=== PATIENT | male | born 1970 | race Caucasian/White ===

== ENCOUNTER → 2018-04-07 | Outpatient (REF) | payer OTHER ==
[2018-04-07 17:45] LABS: AMYLASE 61 U/L (25-115); LIPASE 138 U/L (73-393)
== END ==
LOC: M LAB REF 16:46
PROVIDERS: ATTEND Nurse Practitioner Adult Health
DX: R10.9 Unspecified abdominal pain (principal)

== ENCOUNTER → 2018-04-07 | Outpatient (CLI) | payer OTHER ==
[~2018-04-07] MED LIST: GASTROGRAFIN SOLUTION 30ML (Q9963) As Ordered ONE; ISOVUE-370 76% 100ML VIAL (Q9967) As Ordered ONE
--- NOTE | 2018-04-07 16:05 | REP ---
CT study abdomen and pelvis without and with IV contrast: With oral contrast. History: Severe abdominal pain. CT contrast dose: 100 mL of intravenous Isovue 370. CT findings: Digital preliminary company manager radiograph images are unremarkable. The lung bases are clear on axial CT images. The liver and the spleen are normal in size and homogeneous in texture on pre and postcontrast enhanced imaging. No pancreatic abnormality is observed. The gallbladder shows no evidence of stone or other abnormality. No adrenal lesion is seen. The kidneys enhance symmetrically and are morphologically intact on pre and postcontrast imaging. There is no evidence of hydronephrosis or intrarenal calculus. No retroperitoneal mass or adenopathy is observed. A normal appendix is seen lateral to the cecal tip in the right lower quadrant. There are several dystrophic calcifications in the prostate. Seminal vesicles and urinary bladder are intact. No abdominal wall defect is seen. There is a segment of mural thickening in the sigmoid colon with some associated diverticulosis. There is pericolonic fat streaking. There is a 12 mm fluid collection in the wall of the sigmoid colon. The findings are compatible with acute diverticulitis. There is no evidence of free air or drainable abscess. No bony abnormality is seen. Exam is otherwise unremarkable. Impression: Acute diverticulitis pattern sigmoid colon with 12 mm intramural fluid collection. No evidence of free air or drainable abscess. Electronically Signed by Conor Montaño MD 04/07/2018 04:27 P
== END ==
LOC: M RAD 13:56
PROVIDERS: ATTEND Nurse Practitioner Adult Health
DX: R10.9 Unspecified abdominal pain (principal)

== ENCOUNTER 2018-06-08 08:19 | Day surgery (SDC) | payer OTHER ==
[~2018-06-08] VITALS: Ht 193 cm; Wt 96.2 kg
[~2018-06-08 08:19] MED LIST changes: +FISH120016 PO; -GASTROGRAFIN SOLUTION 30ML (Q9963) As Ordered ONE; -ISOVUE-370 76% 100ML VIAL (Q9967) As Ordered ONE; +NS 1,000 ML IV ONE; +VITA500C24 PO; +VITMTA PO
[2018-06-08] MEDS ORDERED: LIDOCAINE 2% INJ 100 MG/5 ML SDV (FOR ANES.) As Ordered ONE (09:49)
[2018-06-08] MEDS ORDERED: PROPOFOL 200 MG/20 ML VIAL As Ordered ONE (09:49)
--- NOTE | 2018-06-08 10:48 | ROOR ---
Patient Name: Mike Deluna Procedure Date: 06/08/2018 10:12 AM Date of : 1970 Age: 47 Room: [facility] Gender: Male Note Status: Finalized Procedure: Colonoscopy Indications: Follow-up of diverticulitis Providers: Myles Saucedo MD Referring MD: Winnie Delgado NP Requesting Provider: Medicines: Monitored Anesthesia Care Complications: No immediate complications. Procedure: Pre-Anesthesia Assessment: - Prior to the procedure, a History and Physical was performed, and patient medications and allergies were reviewed. The patient is competent. The risks and benefits of the procedure and the sedation options and risks were discussed with the patient. All questions were answered and informed consent was obtained. Patient identification and proposed procedure were verified by the physician, the nurse and the anesthesiologist in the endoscopy suite. Mental Status Examination: alert and oriented. Airway Examination: normal oropharyngeal airway and neck mobility. Respiratory Examination: clear to auscultation. CV Examination: normal. Prophylactic Antibiotics: The patient does not require prophylactic antibiotics. Prior Anticoagulants: The patient has taken no previous anticoagulant or antiplatelet agents. ASA Grade Assessment: I - A normal, healthy patient. After reviewing the risks and benefits, the patient was deemed in satisfactory condition to undergo the procedure. The anesthesia plan was to use monitored anesthesia care (MAC). Immediately prior to administration of medications, the patient was re-assessed for adequacy to receive sedatives. The heart rate, respiratory rate, oxygen saturations, blood pressure, adequacy of pulmonary ventilation, and response to care were monitored throughout the procedure. The physical status of the patient was re-assessed after the procedure. The Colonoscope was introduced through the anus and advanced to the cecum, identified by appendiceal orifice and ileocecal valve. The colonoscopy was performed without difficulty. The patient tolerated the procedure well. The quality of the bowel preparation was good. Findings: The perianal and digital rectal examinations were normal. A 2 to 3 mm polyp was found in the rectum. The polyp was sessile. The polyp was removed with a hot snare. The polyp was removed with a cold snare. Resection was complete, and retrieval was complete. Estimated blood loss was minimal. A few small-mouthed diverticula were found in the sigmoid colon. The retroflexed view of the distal rectum and anal verge was normal and showed no anal or rectal abnormalities. Impression: - One 2 to 3 mm polyp in the rectum, removed with a hot snare and removed with a cold snare. Resected and retrieved. - Diverticulosis in the sigmoid colon. - The distal rectum and anal verge are normal on retroflexion view. Recommendation: - Discharge patient to home (ambulatory). - High fiber diet. - Continue present medications. - Telephone my office for pathology results in 1 week. - Repeat colonoscopy in 10 years for screening purposes. Myles Saucedo MD Myles Saucedo MD 06/08/2018 10:48:20 AM This report has been signed electronically. Number of Addenda: 0 Note Initiated On: 06/08/2018 10:12 AM Estimated Blood Loss: Estimated blood loss was minimal.
[2018-06-08 11:00] VITALS: BP 124/71
== END 2018-06-08 11:12 | disposition home or self-care (01) ==
LOC: M OPP 08:19
PROVIDERS: ATTEND Surgery
DX: K57.30 Diverticulosis of large intestine without perforation or abscess without bleeding (principal); D12.5 Benign neoplasm of sigmoid colon

== ENCOUNTER 2020-06-20 16:44 | Inpatient (IN) | payer OTHER ==
[~2020-06-20] VITALS: Ht 193 cm; Wt 101.4 kg
[~2020-06-20 16:44] MED LIST changes: -CIPR500T39 PO; -GASTROGRAFIN SOLUTION 30ML (Q9963) As Ordered ONE; -ISOVUE-370 76% 100ML VIAL As Ordered ONE; -METR-265 PO
[2020-06-20] MEDS ORDERED: CIPROFLOXACIN 400 MG in IV 1 EA IV ONE (17:40)
[2020-06-20] MEDS ORDERED: metroNIDAZOLE 500 MG in IV 1 EA IV ONE (17:40)
[2020-06-20] MEDS ORDERED: NS 1,000 ML IV ONE (17:40)
[2020-06-20 17:55] LABS: BLOOD UREA NITROGEN 13 MG/DL (7-18); CALCIUM LEVEL 8.9 MG/DL (8.5-10.1); CARBON DIOXIDE LEVEL 30 MEQ/L (21-32); CHLORIDE LEVEL 105 MEQ/L (98-107); CREATININE FOR GFR 1.03 MG/DL (0.70-1.30); GLOMERULAR FILTRATION RATE > 60.0 (>56); GLUCOSE, FASTING 100 MG/DL (70-100); POTASSIUM SERUM 4.3 MEQ/L (3.5-5.1); SODIUM LEVEL 140 MEQ/L (136-145)
[2020-06-20 18:04] LABS: BASO % 0.3 % (0.0-1.0); EOS # 0.1 10^3/uL (0.0-0.5); EOS % 1.6 % (0.0-3.0); HEMATOCRIT 46.5 % (42.0-52.0); HEMOGLOBIN 14.8 g/dl (13.5-17.5); LYMPH # 1.3 10^3/uL (1.5-5.0); LYMPH % 14.3 % (24.0-44.0); MEAN CORPUSCULAR HEMOGLOBIN 30.6 pg (27.0-33.0); MEAN CORPUSCULAR HGB CONC 31.8 g/dl (32.0-36.5); MEAN CORPUSCULAR VOLUME 96.1 fl (80.0-96.0); MONO # 0.8 10^3/uL (0.0-0.8); MONO % 9.5 % (2.0-8.0); NEUTROPHILS # 6.5 10^3/uL (1.5-8.5); NEUTROPHILS % 74.1 % (36.0-66.0); PLATELET COUNT, AUTOMATED 216 10^3/uL (150-450); RED BLOOD COUNT 4.84 10^6/uL (4.30-6.10); WHITE BLOOD COUNT 8.8 10^3/uL (4.0-10.0)
[2020-06-20] MEDS ORDERED: CIPR500T39 PO (18:52)
[2020-06-20] MEDS ORDERED: METR-265 PO (18:52)
[2020-06-20] MEDS ORDERED: MORPHINE 2 MG/ML 1ML VIAL (J2270) IV PRN (20:10)
--- NOTE | 2020-06-20 20:13 | HPEPDOC ---
[facility] Medical History & Physical Date of Admission Jun 20, 2020 Date of Service: Jun 20, 2020 Primary Care Physician: Winnie Delgado Attending Physician: LUCIA GUERRA MD History and Physical TIME OF SERVICE: 912PM CHIEF COMPLAINT: abdominal pain HISTORY OF PRESENT ILLNESS: This 49 yr old M presented w c/o sharp/shooting lower abdominal pain for 2 or 3 days that was associated w non-bloody loose stools. His PCP started him on abx yesterday and ordered a CT of the abdomen th at showed possible bowel perforation an instructed the patient to come to the hospital. REVIEW OF SYSTEMS: 12-point review of systems negative except as listed in HPI PAST MEDICAL/ SURGICAL HISTORY: Diverticulitis (1st episode 2 yrs ago, last acute episode 1 month ago) / resection of tubular adenoma (2019) SOCIAL HISTORY: doesnt smoke FAMILY HISTORY: CAD w stent placement ALLERGIES: Please see below. HOME MEDICATIONS: Please see below. PHYSICAL EXAMINATION: Vital Signs Date Time Temp Pulse Resp B/P (MAP) Pulse Ox O2 Delivery O2 Flow Rate FiO2 06/20/20 16:45 99.1 81 22 140/73 (95) 96 Room Air GENERAL APPEARANCE: well nourished and developed/ NAD/ reclined in hospital bed HEENT: EOMI / no scleral icterus CARDIOVASCULAR: RRR/NMRG/ no LE edema LUNGS: CTAB on RA ABDOMEN: flat / soft / guarding w palpation especially at the right lower abdomen MUSCULOSKELETAL: NCAT / ROMIx 4 INTEGUMENT: not flushed or diaphoretic NEUROLOGICAL:CN 2-12 grossly intact /speech not dysarthric PSYCHIATRIC: A&OX 3 / able to understand and follow all commands LABORATORY DATA: 06/20/20 17:40 06/20/20 17:40: Immature Granulocyte % (Auto) 0.2, Neutrophils (%) (Auto) 74.1H, Lymphocytes (%) (Auto) 14.3L, Monocytes (%) (Auto) 9.5H, Eosinophils (%) (Auto) 1.6, Basophils (%) (Auto) 0.3, Neutrophils # (Auto) 6.5, Lymphocytes # (Auto) 1.3L, Monocytes # (Auto) 0.8, Eosinophils # (Auto) 0.1, Basophils # (Auto) 0.0, Nucleated Red Blood Cells % (auto) 0.0, Anion Gap 5L, Glomerular Filtration Rate > 60.0, Calcium Level 8.9 IMAGING: CT abd/pelvis IMPRESSION: 1. Some residual pericolonic inflammation is seen adjacent to the sigmoid colon, improved from the most recent prior study of May 08, 2020. 2. There is a new finding of free intraperitoneal air, small in amount, in the upper abdomen predominantly adjacent to the liver. This is felt indicate recent bowel perforation. MICROBIOLOGY: COVID neg ASSESSMENT: is a 49 yr old w diverticulosis admitted for acute diverticulitis w perforation. PLAN: 1 Acute diverticulitis w perforation. Plan: admit to medical floor/ NPO w LR / c/w antibiotics / morphine for pain / f/u w for possible surgery in the morning DVT px w SCDs Dispo: home after at least 2 midnights stay Home Medications Scheduled Ciprofloxacin HCl (Ciprofloxacin HCl) 500 Mg Tablet, 500 MG PO BID FOR 14 DAYS, STARTED 06/19 Metronidazole (Metronidazole) 500 Mg Tablet, 500 MG PO TID FOR 14 DAYS, STARTED 06/19 Allergies Coded Allergies: No Known Allergies (Unverified , 06/02/18) A-FIB/CHADSVASC A-FIB History Current/History of A-Fib/PAF?: No Current PO Anticoag Therapy: No LUCIA GUERRA MD Jun 20, 2020 20:13
[2020-06-20] MEDS: LR 1,000 ML IV SCH (21:59)
[2020-06-20 22:00] VITALS: BP 122/70
[2020-06-21] VITALS: BP 111/58
[2020-06-21 04:00] VITALS: BP 125/69
[2020-06-21] MEDS: LR 1,000 ML IV SCH ×3 (06:02→17:15)
[2020-06-21] MEDS: metroNIDAZOLE 500 MG in IV 1 EA IV SCH ×3 (06:07→21:28)
[2020-06-21 06:21] LABS: HEMATOCRIT 42.3 % (42.0-52.0); HEMOGLOBIN 13.6 g/dl (13.5-17.5); MEAN CORPUSCULAR HEMOGLOBIN 30.9 pg (27.0-33.0); MEAN CORPUSCULAR HGB CONC 32.2 g/dl (32.0-36.5); MEAN CORPUSCULAR VOLUME 96.1 fl (80.0-96.0); PLATELET COUNT, AUTOMATED 181 10^3/uL (150-450); WHITE BLOOD COUNT 5.5 10^3/uL (4.0-10.0)
[2020-06-21 06:46] LABS: BLOOD UREA NITROGEN 10 MG/DL (7-18); CALCIUM LEVEL 8.7 MG/DL (8.5-10.1); CARBON DIOXIDE LEVEL 31 MEQ/L (21-32); CHLORIDE LEVEL 108 MEQ/L (98-107); CREATININE FOR GFR 1.03 MG/DL (0.70-1.30); GLOMERULAR FILTRATION RATE > 60.0 (>56); GLUCOSE, FASTING 98 MG/DL (70-100); MAGNESIUM LEVEL 2.2 MG/DL (1.8-2.4); POTASSIUM SERUM 4.5 MEQ/L (3.5-5.1); SODIUM LEVEL 142 MEQ/L (136-145)
[2020-06-21] MEDS: CIPROFLOXACIN 400 MG in IV 1 EA IV SCH ×2 (07:21→18:23)
[2020-06-21 08:00] VITALS: BP 125/81
--- NOTE | 2020-06-21 11:14 | IPNPDOC ---
Text Note Date of Service The patient was seen on 06/21/20. NOTE Gen. surgery. Dr. Saucedo Patient is a 49 yr old with history of diverticulosis admitted 06/20 with acute diverticulitis with perforation. Patient reports no nausea or vomiting. States abdominal pain is improved today. Decreased bloating. No bowel movement since yesterday morning. Small flatus. Afebrile. VSS Gen awake and alert, sitting up in bed MMM Lungs Clear to auscultation S1-S2 regular rate rhythm. Abdomen. Flat, soft, nondistended, mild tenderness in the left lower quadrant. No guarding or rebound. No grimacing. Extremities no edema WBC 5.5, hemoglobin 13.6, platelets 181. Serum creatinine 1.03 with GFR greater than 60. Assessment/plan Acute diverticulitis with perforation. Patient is reviewed and examined as per Dr. Saucedo. Afebrile. No leukocytosis. Plan to continue with IV Cipro/Flagyl. Continue IV fluids Clear liquids ordered this morning. Will continue to monitor the patient's symptoms. If he improves with IV antibiotics over the weekend could consider arranging sigmoid colectomy as outpatient, otherwise could proceed this admission if the patient's symptoms do not improve. Continue to monitor. VS,Fishbone, I+O VS, Fishbone, I+O Laboratory Tests 06/20/20 17:40 06/21/20 06:10 Vital Signs Date Time Temp Pulse Resp B/P (MAP) Pulse Ox O2 Delivery O2 Flow Rate FiO2 06/21/20 08:00 98.4 66 18 125/81 (96) 97 Room Air I&O- Last 24 Hours up to 6 AM 06/21/20 06:00 Intake Total 1780 ml Output Total 0 ml Balance 1780 ml Dulce Cruz Jun 21, 2020 10:41
[2020-06-21 12:00] VITALS: BP 129/75
[2020-06-21] MEDS: HEPARIN SOD (PORCINE) 5000UNITS/ML 1ML VIAL/SYRINGE SQ SCH ×2 (14:00→21:29)
--- NOTE | 2020-06-21 14:52 | IPNPDOC ---
Date Seen The patient was seen on 06/21/20. Progress Note SUBJECTIVE: Improved abd pain, VS stable. WBC remains wnl, afebrile. Discussed with Dr. Saucedo, advancing diet today. Denies n/v/d, fevers, chills. OBJECTIVE: PHYSICAL EXAMINATION: Vital Signs: Please see below GENERAL APPEARANCE: well nourished and developed/ NAD. AAOx 3 HEENT: EOMI / no scleral icterus CARDIOVASCULAR: RRR/NMRG/ no LE edema LUNGS: CTAB on RA ABDOMEN: flat / soft / very mild tenderness/discomfort in suprapubic area 2/10 on deep palpation MUSCULOSKELETAL: NCAT / ROMIx 4 INTEGUMENT: not flushed or diaphoretic NEUROLOGICAL:CN 2-12 grossly intact /speech not dysarthric PSYCHIATRIC: A&OX 3 / able to understand and follow all commands LABORATORY DATA: Please see below IMAGING: CT abd/pelvis: 1. Some residual pericolonic inflammation is seen adjacent to the sigmoid colon, improved from the most recent prior study of May 08, 2020. 2. There is a new finding of free intraperitoneal air, small in amount, in the upper abdomen predominantly adjacent to the liver. This is felt indicate recent bowel perforation. MICROBIOLOGY: COVID neg ASSESSMENT: is a 49 yr old w hx of diverticulosis admitted for acute diverticulitis w/ perforation. PLAN: 1. Acute diverticulitis w/ perforation -WBC wnl, afebrile, improved abdominal pain -Advancing to CLD today -Daily labs -Per surgery, c/w IV abx, pain control. If does well over weekend and with adv ancement of diet, can likely d/c home to discuss elective sigmoid colon resection at later time. If does not continue to improve, this will be discussed this admission. 2. DVT px -Heparin SC DISPOSITION: Plan as above and then hope when medically improved. VS, I&O, 24H, Fishbone Vital Signs/I&O Vital Signs Date Time Temp Pulse Resp B/P (MAP) Pulse Ox O2 Delivery O2 Flow Rate FiO2 06/21/20 12:00 98.8 68 18 129/75 (93) 97 Room Air I&O- Last 24 Hours up to 6 AM 06/21/20 06:00 Intake Total 1780 ml Output Total 0 ml Balance 1780 ml Laboratory Data 24H LABS Laboratory Tests 2 06/20/20 17:15: Lactic Acid Level 0.7 06/20/20 17:40: Immature Granulocyte % (Auto) 0.2, Neutrophils (%) (Auto) 74.1H, Lymphocytes (%) (Auto) 14.3L, Monocytes (%) (Auto) 9.5H, Eosinophils (%) (Auto) 1.6, Basophils (%) (Auto) 0.3, Neutrophils # (Auto) 6.5, Lymphocytes # (Auto) 1.3L, Monocytes # (Auto) 0.8, Eosinophils # (Auto) 0.1, Basophils # (Auto) 0.0, Nucleated Red Blood Cells % (auto) 0.0, Anion Gap 5L, Glomerular Filtration Rate > 60.0, Calcium Level 8.9 06/20/20 18:22: Coronavirus (COVID-19)(PCR) NEGATIVE 06/21/20 01:02: Bedside Glucose (Misc Panel) 88 06/21/20 06:10: Nucleated Red Blood Cells % (auto) 0.0, Anion Gap 3L, Glomerular Filtration Rate > 60.0, Calcium Level 8.7, Magnesium Level 2.2 CBC/BMP Laboratory Tests 06/20/20 17:40 06/21/20 06:10 Current Medications Current Medications Medications (Trade) Dose Ordered Sig/Lenny Route PRN Reason Start Time Stop Time Status Last Admin Dose Admin Ciprofloxacin 400 mg/IV Miscellaneous Supplies 200 ml @ 200 mls/hr Q12H IV 06/21/20 06:00 06/21/20 07:21 Home Med (Med Rec Complete!) ASDIRECTED XX 06/20/20 18:55 06/20/20 18:56 DC Lactated Ringer's 1,000 ml @ 120 mls/hr Q8H20M IV 06/20/20 20:10 06/21/20 06:02 Metronidazole 500 mg/IV Miscellaneous Supplies 100 ml @ 100 mls/hr Q8H IV 06/21/20 05:00 06/21/20 13:18 Morphine Sulfate (Morphine Sulfate Inj) 2 mg Q2HP PRN IV pain 06/20/20 20:10 Allergies Coded Allergies: No Known Allergies (Unverified , 06/02/18) Leila Escalona MD Jun 21, 2020 14:52
[2020-06-21 16:00] VITALS: BP 122/76
[2020-06-21 20:00] VITALS: BP 119/82
[2020-06-22] VITALS: BP 129/73
[2020-06-22 04:00] VITALS: BP 128/76
[2020-06-22 05:37] LABS: HEMATOCRIT 41.3 % (42.0-52.0); HEMOGLOBIN 13.4 g/dl (13.5-17.5); MEAN CORPUSCULAR HEMOGLOBIN 30.7 pg (27.0-33.0); MEAN CORPUSCULAR HGB CONC 32.4 g/dl (32.0-36.5); MEAN CORPUSCULAR VOLUME 94.7 fl (80.0-96.0); PLATELET COUNT, AUTOMATED 181 10^3/uL (150-450); RED BLOOD COUNT 4.36 10^6/uL (4.30-6.10); WHITE BLOOD COUNT 5.5 10^3/uL (4.0-10.0)
[2020-06-22] MEDS: HEPARIN SOD (PORCINE) 5000UNITS/ML 1ML VIAL/SYRINGE SQ SCH ×3 (05:39→21:42)
[2020-06-22] MEDS: CIPROFLOXACIN 400 MG in IV 1 EA IV SCH ×2 (05:40→18:07)
[2020-06-22] MEDS: metroNIDAZOLE 500 MG in IV 1 EA IV SCH ×3 (05:41→21:41)
[2020-06-22] MEDS: LR 1,000 ML IV SCH (05:41)
[2020-06-22 06:06] LABS: ALBUMIN 3.3 GM/DL (3.2-5.2); ALT/SGPT 16 U/L (12-78); BILIRUBIN,TOTAL 1.2 MG/DL (0.2-1.0); BLOOD UREA NITROGEN 8 MG/DL (7-18); CALCIUM LEVEL 8.5 MG/DL (8.5-10.1); CARBON DIOXIDE LEVEL 29 MEQ/L (21-32); CHLORIDE LEVEL 110 MEQ/L (98-107); CREATININE FOR GFR 0.98 MG/DL (0.70-1.30); GLOMERULAR FILTRATION RATE > 60.0 (>56); GLUCOSE, FASTING 95 MG/DL (70-100); POTASSIUM SERUM 4.2 MEQ/L (3.5-5.1); SODIUM LEVEL 142 MEQ/L (136-145); TOTAL PROTEIN 5.9 GM/DL (6.4-8.2)
[2020-06-22 08:20] VITALS: BP 125/83
[2020-06-22 08:22] LABS: C REACTIVE PROTEIN QUANTITATIV 2.06 MG/DL (0.00-0.30)
[2020-06-22 12:45] VITALS: BP 116/68
[2020-06-22] MEDS ORDERED: ACETAMINOPHEN TAB 650MG DOSE (2X325MG) PO PRN (16:55)
--- NOTE | 2020-06-22 17:05 | IPNPDOC ---
Date Seen The patient was seen on 06/22/20. Progress Note SUBJECTIVE: No abd pain, VS stable. Tolerating CLD, advancing further today. Discussed with Dr. Rodriguez (surgery) . Denies n/v/d, fevers, chills. OBJECTIVE: PHYSICAL EXAMINATION: Vital Signs: Please see below GENERAL APPEARANCE: well nourished and developed/ NAD. AAOx 3 HEENT: EOMI / no scleral icterus CARDIOVASCULAR: RRR/NMRG/ no LE edema LUNGS: CTAB on RA ABDOMEN: flat / soft / nontender/discomfort in suprapubic area 2/10 on deep palpation MUSCULOSKELETAL: NCAT / ROMIx 4 INTEGUMENT: not flushed or diaphoretic NEUROLOGICAL:CN 2-12 grossly intact /speech not dysarthric PSYCHIATRIC: A&OX 3 / able to understand and follow all commands LABORATORY DATA: Please see below IMAGING: CT abd/pelvis: 1. Some residual pericolonic inflammation is seen adjacent to the sigmoid colon, improved from the most recent prior study of May 08, 2020. 2. There is a new finding of free intraperitoneal air, small in amount, in the upper abdomen predominantly adjacent to the liver. This is felt indicate recent bowel perforation. MICROBIOLOGY: COVID neg ASSESSMENT: is a 49 yr old w hx of diverticulosis admitted for acute diverticulitis w/ perforation. PLAN: 1. Acute diverticulitis w/ perforation -WBC wnl, afebrile -Advancing diet further today to soft -Daily labs -C/w IV abx, pain control PRN, advance diet as tolerated. If does well today/tonight with advanced diet can d/c tomorrow with cipro/flagyl PO and f/u with Dr. Saucedo this coming week. 2. DVT px -Heparin SC DISPOSITION: Plan as above and then hope when medically improved. VS, I&O, 24H, Fishbone Vital Signs/I&O Vital Signs Date Time Temp Pulse Resp B/P (MAP) Pulse Ox O2 Delivery O2 Flow Rate FiO2 06/22/20 12:45 96.9 75 18 116/68 (84) 97 Room Air I&O- Last 24 Hours up to 6 AM 06/22/20 05:59 Intake Total 3380 ml Output Total 3025 ml Balance 355 ml Laboratory Data 24H LABS Laboratory Tests 2 06/22/20 05:23: Nucleated Red Blood Cells % (auto) 0.0, Anion Gap 3L, Glomerular Filtration Rate > 60.0, Calcium Level 8.5, Total Bilirubin 1.2H, Aspartate Amino Transf (AST/SGOT) 10, Alanine Aminotransferase (ALT/SGPT) 16, Alkaline Phosphatase 64, C-Reactive Protein, Quantitative 2.06H, Total Protein 5.9L, Albumin 3.3, Albumin/Globulin Ratio 1.3 CBC/BMP Laboratory Tests 06/22/20 05:23 Current Medications Current Medications Medications (Trade) Dose Ordered Sig/Lenny Route PRN Reason Start Time Stop Time Status Last Admin Dose Admin Acetaminophen (Tylenol Tab) 650 mg Q4HP PRN PO PAIN OR FEVER 06/22/20 16:55 Ciprofloxacin 400 mg/IV Miscellaneous Supplies 200 ml @ 200 mls/hr Q12H IV 06/21/20 06:00 06/22/20 05:40 Heparin Sodium (Porcine) (Heparin) 5,000 units Q8H SQ 06/21/20 14:00 06/22/20 14:12 Home Med (Med Rec Complete!) ASDIRECTED XX 06/20/20 18:55 06/20/20 18:56 DC Lactated Ringer's 1,000 ml @ 100 mls/hr Q10H IV 06/20/20 20:10 06/22/20 10:13 DC 06/22/20 05:41 Metronidazole 500 mg/IV Miscellaneous Supplies 100 ml @ 100 mls/hr Q8H IV 06/21/20 05:00 06/22/20 14:14 Morphine Sulfate (Morphine Sulfate Inj) 2 mg Q2HP PRN IV pain 06/20/20 20:10 Allergies Coded Allergies: No Known Allergies (Unverified , 06/02/18) Leila Escalona MD Jun 22, 2020 17:05
--- NOTE | 2020-06-22 17:46 | IPN ---
PROGRESS NOTE DATE: 06/22/2020 HISTORY: Patent was admitted on June 20, 2020. He had a CT scan as an outpatient that showed an area of diverticulitis in his sigmoid colon with two or three very small free air bubbles in the upper abdomen. He was admitted and started on antibiotics. He has been observed with serial exams and laboratory studies. He was started on some clear liquids on June 21, 2020. Today, he is not complaining of any abdominal pain currently. Vital signs show that he is afebrile over the past 24 hours. His pulse is in the 60s and 70s. Blood pressure is good and his room air oxygen saturations are normal. Intake and output show that yesterday he had 3160 mL in with 3000 mL out. He was drinking liquids well and remained on full maintenance intravenous (IV) fluid. PHYSICAL EXAMINATION: Patient is sitting upright in bed looking quite comfortable. Skin is warm and dry. Heart and lung exams are unremarkable. Abdomen is flat. He has active bowel sounds. There is no tenderness to palpation throughout the abdomen. LABORATORY STUDIES: Laboratory studies today show a white count of 6, hemoglobin 13, hematocrit 41 and a platelet count of 181,000. Chemistry profile shows normal electrolytes with the exception of a chloride of 110. BUN and creatinine are normal, as is the glucose. A C-reactive protein was done today and that was 2.06. IMPRESSION: Patient is doing well on antibiotics for a limited area of diverticulitis of the sigmoid colon with several tiny free air bubbles in the upper abdomen. He is tolerating clear liquids and has no abdominal pain. PLAN: Patient will be advanced to a soft diet. I discussed the patient with Dr. Escalona today and, if he tolerates the soft diet, then I would recommend that he be discharged home tomorrow on oral antibiotics to follow up in the office with Dr. Saucedo.
[2020-06-22 22:00] VITALS: BP 116/75
[2020-06-22] MEDS ORDERED: ONDANSETRON 4MG/2ML VIAL IV ONE (22:50)
[2020-06-23] MEDS: metroNIDAZOLE 500 MG in IV 1 EA IV SCH (05:05)
[2020-06-23 06:00] VITALS: BP 124/74
[2020-06-23 06:01] LABS: HEMATOCRIT 41.8 % (42.0-52.0); HEMOGLOBIN 13.6 g/dl (13.5-17.5); MEAN CORPUSCULAR HEMOGLOBIN 30.4 pg (27.0-33.0); MEAN CORPUSCULAR HGB CONC 32.5 g/dl (32.0-36.5); MEAN CORPUSCULAR VOLUME 93.5 fl (80.0-96.0); PLATELET COUNT, AUTOMATED 193 10^3/uL (150-450); RED BLOOD COUNT 4.47 10^6/uL (4.30-6.10); WHITE BLOOD COUNT 4.5 10^3/uL (4.0-10.0)
[2020-06-23] MEDS: HEPARIN SOD (PORCINE) 5000UNITS/ML 1ML VIAL/SYRINGE SQ SCH (06:14)
[2020-06-23] MEDS: CIPROFLOXACIN 400 MG in IV 1 EA IV SCH (06:15)
[2020-06-23 06:30] LABS: ALBUMIN 3.4 GM/DL (3.2-5.2); ALT/SGPT 16 U/L (12-78); BILIRUBIN,TOTAL 0.8 MG/DL (0.2-1.0); BLOOD UREA NITROGEN 11 MG/DL (7-18); CALCIUM LEVEL 8.8 MG/DL (8.5-10.1); CARBON DIOXIDE LEVEL 28 MEQ/L (21-32); CHLORIDE LEVEL 111 MEQ/L (98-107); CREATININE FOR GFR 0.98 MG/DL (0.70-1.30); GLOMERULAR FILTRATION RATE > 60.0 (>56); GLUCOSE, FASTING 91 MG/DL (70-100); POTASSIUM SERUM 4.1 MEQ/L (3.5-5.1); SODIUM LEVEL 142 MEQ/L (136-145); TOTAL PROTEIN 6.4 GM/DL (6.4-8.2)
[2020-06-23] MEDS ORDERED: ZOFR4TAB16 PO (10:39)
--- NOTE | 2020-06-23 16:54 | DS.PDOC ---
Discharge Summary General Date of Admission Jun 20, 2020 at 20:32 Date of Discharge 06/23/20 Attending Physician: Leila Escalona MD Discharge Summary HISTORY OF PRESENT ILLNESS: Patient is a 49 yr old M with PMH of recurrent diverticulitis presented 06/20/20 c/o sharp/shooting lower abdominal pain for 2 or 3 days that was associated w non-bloody loose stools. His PCP started him on ciprofloxacin and flagyl 06/19/[address] of the abdomen that showed possible bowel perforation. He was instructed to come to the ER for further evaluation. In the ER, VS were stable. CT results were reviewed with surgeon education and outreach coordinator, Dr. Saucedo who recommended admission for diverticulitis with perforation. HOSPITAL COURSE: Patient was kept NPO initially, he was followed closely by surgery and hospitalist service. WBC remained wnl, he was afebrile and had improved lower abdominal pain. He was advanced to CLD and later regular diet without issues. He did have some mild nausea which he required zofran for, but no increased abdominal pain. He remained on IV abx which he tolerated well. By 06/23/20 patient was much improved and was discharged home. He will need to c/w o/p metronidazole, ciprofloxacin for 2 weeks. He was given the phone number to contact after this weekend to schedule follow up with Dr. Saucedo, general surgeon. At that appointment they will reassess and see if arranging o/p surgery or just continuing to monitor infection is necessary. PAST MEDICAL HISTORY: Diverticulitis (1st episode 2 yrs ago, last acute episode 1 month ago) SURGICAL HISTORY: Resection of tubular adenoma (2019) SOCIAL HISTORY: Denies smoking, illicit drug history. Occasional alcohol use. Full code. PCP- [place], [place] FAMILY HISTORY: CAD w stent placement DISCHARGE MEDICATIONS: Please see below PHYSICAL EXAMINATION: Vital Signs: Please see below GENERAL APPEARANCE: well nourished and developed/ NAD. AAOx 3 HEENT: EOMI / no scleral icterus CARDIOVASCULAR: RRR/NMRG/ no LE edema LUNGS: CTAB on RA ABDOMEN: flat / soft / nontender/ BS + in 4 quadranats, no organomegaly MUSCULOSKELETAL: NCAT / ROMIx 4 INTEGUMENT: not flushed or diaphoretic NEUROLOGICAL:CN 2-12 grossly intact /speech not dysarthric PSYCHIATRIC:Mood and affect appropriate LABORATORY DATA: Please see below IMAGING: CT abd/pelvis 06/20/20: 1. Some residual pericolonic inflammation is seen adjacent to the sigmoid colon, improved from the most recent prior study of May 08, 2020. 2. There is a new finding of free intraperitoneal air, small in amount, in the upper abdomen predominantly adjacent to the liver. This is felt indicate recent bowel perforation. MICROBIOLOGY: COVID neg ASSESSMENT: Patient is a 49 yr old w hx of diverticulosis admitted for acute diverticulitis w/ perforation. PLAN: Acute diverticulitis w/ perforation -WBC wnl, afebrile, nontender in abdomen -Tolerated advanced diet well. -D/c home today with PO flagyl, cipro for 2 weeks. Zofran PRN for nausea. Advised to eat smaller meals, advance as tolerated. Will need to call surgery clinic after weekend to schedule follow up with Dr. Saucedo this coming week. -He is to report any worsening symptoms DISPOSITION: Discharge home today in improved condition, call surgery clinic after weekend to schedule follow up. TIME SPENT ON DISCHARGE: 35 minutes. Vital Signs/I&Os Vital Signs Date Time Temp Pulse Resp B/P (MAP) Pulse Ox O2 Delivery O2 Flow Rate FiO2 06/23/20 06:00 98.4 68 18 124/74 (91) 97 Room Air I&O- Last 24 Hours up to 6 AM 06/23/20 06:00 Intake Total 3500 ml Output Total 900 ml Balance 2600 ml Laboratory Data Labs 24H Laboratory Tests 2 06/23/20 05:50: Nucleated Red Blood Cells % (auto) 0.0, Anion Gap 3L, Glomerular Filtration Rate > 60.0, Calcium Level 8.8, Total Bilirubin 0.8, Aspartate Amino Transf (AST/SGOT) 15, Alanine Aminotransferase (ALT/SGPT) 16, Alkaline Phosphatase 58, Total Protein 6.4, Albumin 3.4, Albumin/Globulin Ratio 1.1 CBC/BMP Laboratory Tests 06/23/20 05:50 Discharge Medications Scheduled Ciprofloxacin HCl (Ciprofloxacin HCl) 500 Mg Tablet, 500 MG PO BID, (Reported) FOR 14 DAYS, STARTED 06/19 Metronidazole (Metronidazole) 500 Mg Tablet, 500 MG PO TID, (Reported) FOR 14 DAYS, STARTED 06/19 Scheduled PRN Ondansetron HCl (Zofran) 4 Mg Tablet, 4 MG PO Q6HP PRN for nausea/vomiting Allergies Coded Allergies: No Known Allergies (Unverified , 06/02/18) Leila Escalona MD Jun 23, 2020 16:54
--- NOTE | 2020-06-24 14:10 | CR.PDOC ---
General Surgery Consultation Date of Consultation 06/21/20 History and Physical CONSULT REPORT FOR: hospitalist service REASON FOR CONSULTATION: abdominal pain, diverticulitis HISTORY OF PRESENT ILLNESS: I was made aware of Mr. Deluna's CT abdomen and pelvis by his primary provider who saw him the day prior to the CT. He came in with about 2 dyas of lower abdominal pain of sudden onset. He was feeling constipated the week prior but has been having small amounts of liquid stool since the pain. He denies any associated fever, nausea or vomiting. He rates the pain at 10/10 when it started, today roughly 4/10. He has had prior attacks of diverticulitis. I saw him in the clinic in 2019 after a bout of diverticulitis and performed a colonoscopy which just showed diverticulosis. He has been relatively asymptomatic up until mid April when he had a bout of diverticulitis treated as outpatient with a 2 week antibiotic cours with resolution of his symptoms though he tells me that some of the bloating, hard to pass stools still r emained. PAST MEDICAL HISTORY: 1. prior h/o diverticulitis 2. GERD 3. hypertension 4. depression PAST SURGICAL HISTORY: INCLUDES: 1. Colonoscopy (removal of tubular adenoma, diverticulosis) ALLERGIES: Please see below. FAMILY HISTORY: no family history of colon cancer, inflammatory bowel disease, problems with anesthesia. HOME MEDICATIONS: Please see below. REVIEW OF SYSTEMS: GENERAL: symptoms at least 4 days in duration, mildly improved, no fevers or chills, no unexplained weight loss. HEENT: Denies blurred vision and double vision. Denies ear symptoms. Denies hoarseness. NECK: Denies any neck pain CARDIOVASCULAR: Denies chest pain and palpitations. MUSCULOSKELETAL: Denies arthralgias, back pain and thrombophlebitis. SKIN: Denies rash. NEUROLOGIC: Denies headache, stroke and transient ischemic attack. PSYCHIATRIC: Denies anxiety and depression. HEMATOLOGY/ONCOLOGY: Denies bleeding or clotting disorder. HEART: Denies any chest pains, palpitations, paroxysmal dyspnea, orthopnea. PULMONARY: Denies chronic cough, dyspnea and wheezing. GASTROINTESTINAL: see HPI, colonoscopy in 2019. GENITOURINARY: Denies dysuria, frequency, hematuria and nocturia. ENDOCRINE: Denies polydipsia, polyphagia, polyuria, heat or cold intolerance. INFECTIOUS: Denies any recent upper respiratory tract infection, UTI, need for use of antibiotics. NUTRITION: Reports good appetite. PHYSICAL EXAMINATION: VITALS SIGNS: Please see below. GENERAL APPEARANCE:Patient seen, laying in bed, awake, alert, and oriented. Comfortable, in no acute distress. SKIN: Warm and moist. HEENT: Normocephalic, atraumatic. [place] palpebral conjunctiva, anicteric sclerae. Lips and mucosa appear moist. NECK: Supple, no thyromegaly. No obvious jugular venous distention. LUNGS: Clear to auscultation bilaterally. No wheezing appreciated. HEART: No chest wall abnormalities. Regular rate and rhythm with no murmurs appreciated. ABDOMEN: Abdomen is relatively flat, soft, nondistended. No abdominal scars. No umbilical or groin herniations. Mild tenderness on deep palpation over the suprapubic area. No rebound or guarding. EXTREMITIES: Extremities have no deformities. No edema identified ANCILLARIES: LABORATORY DATA: Please see below. IMAGING STUDIES: CT abdomen and pelvis done 06/20/20 as outpatient 1. Some residual pericolonic inflammation is seen adjacent to the sigmoid colon, improved from the most recent prior study of May 08, 2020. 2. There is a new finding of free intraperitoneal air, small in amount, in the upper abdomen predominantly adjacent to the liver. This is felt indicate recent bowel perforation. I reviewed the images with the patient IMPRESSION AND PLAN: Diverticulitis, localized perforation, no abscess There is concern about the small amount of scattered bubbles of air around the liver. This is from diverticulitis though the area of the midsigmoid colon that appears inflamed does not show that much severe inflammation or abscess locally. He is not showing any signs of severe inflammatory response from this or generalized peritonitis and reports he actually feels better that he was the past two days since being started on IV antibiotics last night. If he continues to get better, then he would not require any surgical intervention at this time, though it seems he is having more episodes closer to each other or this episode is an extension of the last months attack. Either way, I would suggest interval sigmoid colectomy because of this if he does not require emergent surgical excision. Vital Signs Vital Signs Date Time Temp Pulse Resp B/P (MAP) Pulse Ox O2 Delivery O2 Flow Rate FiO2 06/22/20 00:00 98.7 60 18 129/73 (91) 96 Room Air I&Os I&O- Last 24 Hours up to 6 AM 06/22/20 06:00 Intake Total 2680 ml Output Total 3025 ml Balance -345 ml Laboratory Data Labs 24H Laboratory Tests 2 06/21/20 06:10: Nucleated Red Blood Cells % (auto) 0.0, Anion Gap 3L, Glomerular Filtration Rate > 60.0, Calcium Level 8.7, Magnesium Level 2.2 CBC/BMP Laboratory Tests 06/21/20 06:10 Home Medications Scheduled Ciprofloxacin HCl (Ciprofloxacin HCl) 500 Mg Tablet, 500 MG PO BID, (Reported) FOR 14 DAYS, STARTED 06/19 Metronidazole (Metronidazole) 500 Mg Tablet, 500 MG PO TID, (Reported) FOR 14 DAYS, STARTED 06/19 Scheduled PRN Ondansetron HCl (Zofran) 4 Mg Tablet, 4 MG PO Q6HP PRN for nausea/vomiting Allergies Coded Allergies: No Known Allergies (Unverified , 06/02/18) MIMI MOISE MD Jun 22, 2020 04:43
== END 2020-06-23 11:54 | disposition home or self-care (01) | DRG 392 ==
LOC: M ED 16:44 → M ED INP 20:32 → ENRESERV 21:14 → M PCU 21:50 → M MSPAV 06-22 12:50
PROVIDERS: ADMIT Internal Medicine; ATTEND Internal Medicine
DX: K57.20 Diverticulitis of large intestine with perforation and abscess without bleeding (principal); K21.9 Gastro-esophageal reflux disease without esophagitis; F32.9 Major depressive disorder, single episode, unspecified; I10 Essential (primary) hypertension; Z20.822 Contact with and (suspected) exposure to COVID-19; Z86.010 Personal history of colon polyps

== ENCOUNTER → 2020-06-20 | Outpatient (CLI) | payer OTHER ==
[~2020-06-20] MED LIST changes: +CIPR500T39 PO; +GASTROGRAFIN SOLUTION 30ML (Q9963) As Ordered ONE; +ISOVUE-370 76% 100ML VIAL As Ordered ONE; +METR-265 PO; -NS 1,000 ML IV ONE
--- NOTE | 2020-06-20 13:47 | REP ---
INDICATION: DIVERTICULITIS. COMPARISON: Comparison CT studies are from May 08, 2020 and April 07, 2018.. TECHNIQUE: Helical scanning is acquired and 3 mm axial images re-formatted. Coronal and sagittal MPR images are generated. The CT contrast enhancement dose is 100 mL of intravenous Isovue 370. Oral contrast was also administered. FINDINGS: Preliminary digital research laboratory specialist radiograph is unremarkable. The lung bases are clear on axial CT images. The most recent prior study and indeed the remote prior study showed acute diverticulitis of the sigmoid colon. There is some residual pericolonic inflammation and streaking but the mural thickening is improved and no abscess is seen. No new inflammatory bowel changes are noted. However, there are multiple droplets of free intraperitoneal air in the upper abdomen predominantly surrounding and adjacent to the liver indicating un contained perforation of bowel loop. No other site of inflammation is seen. Exam is otherwise unchanged. Liver spleen kidneys pancreas and gallbladder are unremarkable. Normal adrenal glands are seen. No retroperitoneal mass or adenopathy is seen. There are dystrophic calcifications in the prostate. Urinary bladder is intact. Small bowel loops are unremarkable. IMPRESSION: 1. Some residual pericolonic inflammation is seen adjacent to the sigmoid colon, improved from the most recent prior study of May 08, 2020. 2. There is a new finding of free intraperitoneal air, small in amount, in the upper abdomen predominantly adjacent to the liver. This is felt indicate recent bowel perforation. 3. Critical Findings: The critical information above was relayed directly by me by telephone to the RN assisting Winnie Delgado on 06/20/2020 at 1:42 pm with readback verification. <Electronically signed by Maxwell Montaño > 06/20/20 [id number]
== END ==
LOC: M RAD 09:35
PROVIDERS: ATTEND Nurse Practitioner Adult Health
DX: K57.12 Diverticulitis of small intestine without perforation or abscess without bleeding (principal)
CPT/HCPCS: 74177; Q9963; Q9967

== ENCOUNTER → 2020-07-27 | Outpatient (CLI) | payer OTHER ==
[~2020-07-27] MED LIST changes: +CIPR500T39 PO; +METR-265 PO; +ZOFR4TAB16 PO
== END ==
LOC: M LABSMTC 09:40
PROVIDERS: ATTEND Anesthesiology
DX: Z01.818 Encounter for other preprocedural examination (principal); Z11.52 Encounter for screening for COVID-19

== ENCOUNTER 2020-08-01 07:27 | Day surgery (SDC) | payer OTHER ==
[~2020-08-01] VITALS: Ht 193 cm; Wt 93.6 kg
[~2020-08-01 07:27] MED LIST changes: +NS 1,000 ML IV ONE
[2020-08-01] MEDS ORDERED: LIDOCAINE 2% 100MG/5ML SDV (FOR ANES.) As Ordered ONE (09:59)
[2020-08-01] MEDS ORDERED: propofoL 200 MG/20 ML VIAL As Ordered ONE (09:59)
--- NOTE | 2020-08-01 10:00 | ROOR ---
Patient Name: Mike Deluna Procedure Date: 08/01/2020 9:40 AM Date of : 1970 Age: 50 Room: [facility] Gender: Male Note Status: Finalized Procedure: Colonoscopy Indications: High risk colon cancer surveillance: Personal history of colonic polyps Providers: DO Jazmyn Hou MD: Winnie Delgado NP Requesting Provider: Medicines: Propofol per Anesthesia Complications: No immediate complications. Procedure: Pre-Anesthesia Assessment: - Prior to the procedure, a History and Physical was performed, and patient medications and allergies were reviewed. The patient is competent. The risks and benefits of the procedure and the sedation options and risks were discussed with the patient. All questions were answered and informed consent was obtained. Patient identification and proposed procedure were verified by the physician, the nurse, the weight recorder and the facilities technician in the endoscopy suite. Mental Status Examination: alert and oriented. Airway Examination: normal oropharyngeal airway and neck mobility. Respiratory Examination: clear to auscultation. CV Examination: normal. Prophylactic Antibiotics: The patient does not require prophylactic antibiotics. Prior Anticoagulants: The patient has taken no previous anticoagulant or antiplatelet agents. ASA Grade Assessment: II - A patient with mild systemic disease. After reviewing the risks and benefits, the patient was deemed in satisfactory condition to undergo the procedure. The anesthesia plan was to use monitored anesthesia care (MAC). Immediately prior to administration of medications, the patient was re-assessed for adequacy to receive sedatives. The heart rate, respiratory rate, oxygen saturations, blood pressure, adequacy of pulmonary ventilation, and response to care were monitored throughout the procedure. The physical status of the patient was re-assessed after the procedure. The Colonoscope was introduced through the anus and advanced to the cecum, identified by appendiceal orifice and ileocecal valve. The colonoscopy was performed without difficulty. The patient tolerated the procedure well. Findings: A less than 5 mm polyp was found in the sigmoid colon. The polyp was hyperplastic. Biopsies were taken with a cold forceps for histology. Estimated blood loss was minimal. Multiple small-mouthed diverticula were found in the sigmoid colon and descending colon. Internal hemorrhoids were found during retroflexion. The hemorrhoids were Grade I (internal hemorrhoids that do not prolapse). Impression: - One less than 5 mm polyp in the sigmoid colon. Biopsied. - Diverticulosis in the sigmoid colon and in the descending colon. - Internal hemorrhoids. Recommendation: - Patient has a contact number available for emergencies. The signs and symptoms of potential delayed complications were discussed with the patient. Return to normal activities tomorrow. Written discharge instructions were provided to the patient. - Repeat colonoscopy in 3 - 5 years for surveillance based on pathology results. - Return to my office at appointment to be scheduled. - Await pathology results. Procedure Code(s): --- Professional --- 00260, Colonoscopy, flexible; with biopsy, single or multiple Diagnosis Code(s): --- Professional --- Z86.010, Personal history of colonic polyps K63.5, Polyp of colon K64.0, First degree hemorrhoids K57.30, Diverticulosis of large intestine without perforation or abscess without bleeding CPT copyright 2019 [employer]. All rights reserved. The codes documented in this report are preliminary and upon block saw operator review may be revised to meet current compliance requirements. Dieudonne Kahn DO 08/01/2020 9:59:39 AM Electronically signed by Dieudonne Kahn DO Number of Addenda: 0 Note Initiated On: 08/01/2020 9:40 AM Estimated Blood Loss: Estimated blood loss was minimal.
[2020-08-01 10:25] VITALS: BP 109/67
== END 2020-08-01 10:55 | disposition home or self-care (01) ==
LOC: M OPP 07:27
PROVIDERS: ATTEND Surgery
DX: K63.5 Polyp of colon (principal); Z86.010 Personal history of colon polyps; K57.30 Diverticulosis of large intestine without perforation or abscess without bleeding; K64.8 Other hemorrhoids; K21.9 Gastro-esophageal reflux disease without esophagitis

== ENCOUNTER → 2021-05-27 | Emergency (ER) | payer OTHER ==
[~2021-05-27] VITALS: Ht 193 cm; Wt 102.6 kg
[~2021-05-27] MED LIST changes: +CIPR-249 PO; +ISOVUE-370 76% 100ML VIAL As Ordered ONE; +KETOROLAC 30 MG/ML 1ML VIAL IV ONE; +ONDA4TAB6 PO; +ONDANSETRON 4MG/2ML VIAL IV ONE
[2021-05-27 12:04] LABS: BASO % 0.2 % (0.0-1.0); EOS # 0.1 10^3/uL (0.0-0.5); EOS % 0.6 % (0.0-3.0); HEMATOCRIT 45.6 % (42.0-52.0); HEMOGLOBIN 14.8 g/dl (13.5-17.5); LYMPH # 1.4 10^3/uL (1.5-5.0); LYMPH % 8.8 % (24.0-44.0); MEAN CORPUSCULAR HEMOGLOBIN 30.8 pg (27.0-33.0); MEAN CORPUSCULAR HGB CONC 32.5 g/dl (32.0-36.5); MEAN CORPUSCULAR VOLUME 94.8 fl (80.0-96.0); MONO # 1.5 10^3/uL (0.0-0.8); MONO % 9.6 % (2.0-8.0); NEUTROPHILS # 12.4 10^3/uL (1.5-8.5); NEUTROPHILS % 80.5 % (36.0-66.0); PLATELET COUNT, AUTOMATED 180 10^3/uL (150-450); RED BLOOD COUNT 4.81 10^6/uL (4.30-6.10); WHITE BLOOD COUNT 15.4 10^3/uL (4.0-10.0)
[2021-05-27 13:06] LABS: BILIRUBIN,DIRECT 0.4 MG/DL (0.0-0.2); BILIRUBIN,TOTAL 2.1 MG/DL (0.2-1.0); TOTAL PROTEIN 7.5 GM/DL (6.4-8.2)
[2021-05-27 15:20] VITALS: BP 131/85
== END | disposition home or self-care (01) ==
LOC: M ED 11:03
DX: K57.32 Diverticulitis of large intestine without perforation or abscess without bleeding (principal); E78.5 Hyperlipidemia, unspecified; I10 Essential (primary) hypertension; F32.9 Major depressive disorder, single episode, unspecified; R51.9 Headache, unspecified; Z86.16 Personal history of COVID-19; J30.9 Allergic rhinitis, unspecified
CPT/HCPCS: 36415; 74177; 80047; 80076; 81001; 83605; 83690; 85025; 96361; 96374; 96375; 99284; J1885; J2405; Q9967

== ENCOUNTER → 2022-09-25 | Outpatient (CLI) | payer OTHER ==
[~2022-09-25] MED LIST changes: -ISOVUE-370 76% 100ML VIAL As Ordered ONE; -KETOROLAC 30 MG/ML 1ML VIAL IV ONE; -NS 1,000 ML IV ONE; -ONDANSETRON 4MG/2ML VIAL IV ONE
== END ==
LOC: M CARPUL 07:52
PROVIDERS: ATTEND Nurse Practitioner Adult Health
DX: R00.2 Palpitations (principal)